=== PATIENT | female | born 1950 | race Caucasian/White ===

== ENCOUNTER 2016-10-10 12:07 | Emergency (ER) | payer MEDICARE, OTHER ==
[2016-10-10] MEDS ORDERED: HYDROcod/ACETAM 5/325 MG TABLET PO STA (14:36)
[2016-10-10] MEDS ORDERED: HYDROcod/ACETAM 5/325 MG TABLET ONE (14:55)
== END 2016-10-10 15:11 | disposition home or self-care (01) ==
DX: M25.561 Pain in right knee (principal); M54.5 Low back pain; R03.0 Elevated blood-pressure reading, without diagnosis of hypertension; Z86.73 Personal history of transient ischemic attack (TIA), and cerebral infarction without residual deficits; E11.9 Type 2 diabetes mellitus without complications; Z79.4 Long term (current) use of insulin; Z79.84 Long term (current) use of oral hypoglycemic drugs
CPT/HCPCS: 72100; 73564; 99283; A9270

== ENCOUNTER 2017-12-26 16:18 | Emergency (ER) | payer MEDICARE, OTHER ==
--- NOTE | 2017-12-26 16:58 | ED Physician Documentation ---
PD HPI Fall - Stated complaint Stated Complaint: GLF/R SHOULDER/ELBOW PX - Chief complaint Chief Complaint: Ext Problem - History obtained from History obtained from: Patient - History of Present Illness Mechanism of injury: Tripped, Slipped Fall distance: Standing position Where injury occurred: Home Timing - onset: Today Injury(ies) location: Right Upper Extremity, Right Lower Extremity Quality of pain: Pain, Aching Associated symptoms: No: LOC, AMS, Amnesia Worsens with: Movement, Palpation Similar symptoms before: Has not had sx before Recently seen: Not recently seen - Additional information Additional information: patient is a 67 year old female who is presenting to the emergency department after falling. patient states that she tripped over a ladder and fell hitting her right upper and lower extremities. patient denies any head trauma or loc. Review of Systems Ten Systems: 10 systems reviewed and negative GI: denies: Nausea, Vomiting Skin: denies: Abrasion (s) Musculoskeletal: reports: Extremity pain, Joint pain, Extremity swelling, Joint swelling Neurologic: denies: Headache, Head injury, LOC PD PAST MEDICAL HISTORY - Past Medical History Past Medical History: Yes Endocrine/Autoimmune: Type 2 diabetes Psych: Depression - Past Surgical History Past Surgical History: Yes General: Appendectomy Ortho: Knee replacement - Present Medications Home Medications: Ambulatory Orders Medication Instructions Recorded Confirmed Insulin Glargine,Hum.rec.anlog 80 unit SQ 09/19/13 06/30/15 [Lantus] Metformin HCl [Glucophage] 1,000 mg PO BID 09/19/13 06/30/15 Venlafaxine HCl [Effexor Xr] 150 mg PO DAILY 12/26/17 - Allergies Allergies/Adverse Reactions: Allergies Allergy/AdvReac Type Severity Reaction Status Date / Time fexofenadine HCl * Allergy Hives Verified 12/26/17 16:42 [From Esther] Penicillins Allergy Hives Verified 12/26/17 16:42 Sulfa (Sulfonamide Allergy Hives Verified 12/26/17 16:42 Antibiotics) - Social History Does the pt smoke?: No Smoking Status: Never smoker Does the pt drink ETOH?: No Does the pt have substance abuse?: No - Immunizations Immunizations are current?: Yes PD ED PE NORMAL - Vitals Vital signs reviewed: Yes - General General: Alert and oriented X 3 - HEENT HEENT: Atraumatic - Neck Neck: No bony TTP - Cardiac Cardiac: RRR - Respiratory Respiratory: No respiratory distress - Neuro Neuro: Alert and oriented X 3, Normal speech Eye Opening: Spontaneous PD ED PE EXPANDED - Extremities Extremities: Right shoulder (mild tenderness to palpation), Right elbow ( tenderness and swelling over right elbow, decreased rom secondary to pain), Right wrist (mild tenderness to palpation of right wrist), Right knee ( tenderness to palpation of right knee) Results - Vitals Vitals: Vital Signs - 24 hr 12/26/17 16:26 Temperature 36.5 C Heart Rate 94 Respiratory 18 Rate Blood Pressure 125/81 H O2 Saturation 94 Oxygen O2 Source Room air - Rads (name of study) right elbow Radiology: Final report received (small radial head fracture) right shoulder Radiology: Final report received (no acute fracture or dislocation) right wrist Radiology: Final report received (no acute fracture or dislocation) right knee Radiology: Final report received (no acute fracture or dislocation) PD MEDICAL DECISION MAKING - ED course Complexity details: reviewed old records, reviewed results, re-evaluated patient , considered differential, d/w patient, d/w family ED course: Patient was seen and examined at bedside. patient was sent for imaging. When patient returned the results were reviewed. Patient was found to have a radial head fracture. Patient was placed in a posterior splint. Patient was given detailed discharge and follow up instructions and was stable for outpatient follow up. - Sepsis Event Vital Signs: Vital Signs - 24 hr 12/26/17 16:26 Temperature 36.5 C Heart Rate 94 Respiratory 18 Rate Blood Pressure 125/81 H O2 Saturation 94 Oxygen O2 Source Room air Departure - Departure Disposition: 01 Home, Self Care Clinical Impression: Radial head fracture, closed Condition: Good Instructions: ED Fx Upper Ext Follow-Up: Adrian Hook MD [Provider Admit Priv/Credential] - Within 3 Days Comments: Your symptoms today are being caused by a radial head fracture. You have been placed in a splint. you should ice your elbow at least 4 times a day. you can take motrin or tylenol as needed for pain. You should call Dr. Hook's office tomorrow to schedule a follow up appointment. you may return to the emergency department at any time for new, worsening or uncontrollable symptoms.
--- NOTE | 2017-12-26 17:43 | XRAY Report ---
Procedure Date: 12/26/2017 Accession Number: [id number] / [id number] Procedure: XR - Elbow 2 View RT CPT Code: FULL RESULT: EXAM: RIGHT ELBOW RADIOGRAPHY EXAM DATE: 12/26/2017 05:29 PM. CLINICAL HISTORY: Fall, pain. COMPARISON: None. TECHNIQUE: 2 views. FINDINGS: Bones: Osteopenia. Mildly impacted fracture of the radial head with discontinuity of the articular surface measuring about 2.6 mm. Otherwise unremarkable. Joints: Distention of anterior and posterior fat pads. Mild marginal lipping. Soft Tissues: Mild soft tissue swelling. IMPRESSION: Impacted radial head fracture. RADIA
--- NOTE | 2017-12-26 17:47 | XRAY Report ---
Procedure Date: 12/26/2017 Accession Number: [id number] / [id number] Procedure: XR - Shoulder 3 View RT CPT Code: FULL RESULT: EXAM: RIGHT SHOULDER RADIOGRAPHY EXAM DATE: 12/26/2017 05:29 PM. CLINICAL HISTORY: Fall on right side. COMPARISON: 12/18/2013. TECHNIQUE: 3 views. FINDINGS: Bones: Osteopenia. Deformity of humeral head and neck due to old fracture. No definite acute fracture or other bone lesion. Joints: Moderate degenerative changes. Soft tissues: Unremarkable. Clear visualized lung. IMPRESSION: No acute disease. RADIA
--- NOTE | 2017-12-26 17:49 | XRAY Report ---
Procedure Date: 12/26/2017 Accession Number: [id number] / [id number] Procedure: XR - Knee 2 View RT CPT Code: FULL RESULT: EXAM: RIGHT KNEE RADIOGRAPHY EXAM DATE: 12/26/2017 05:29 PM. CLINICAL HISTORY: Fall, pain. COMPARISON: 10/10/2016. TECHNIQUE: 2 views. FINDINGS: Bones: Osteopenia. No definite fracture or other bone lesion. Joints: Total knee prosthesis in anatomic alignment. No abnormal lucency associated with the prosthesis. Soft Tissues: Unremarkable. IMPRESSION: No acute disease. RADIA
--- NOTE | 2017-12-26 17:50 | XRAY Report ---
Procedure Date: 12/26/2017 Accession Number: [id number] / [id number] Procedure: XR - Wrist 2 View RT CPT Code: FULL RESULT: EXAM: RIGHT WRIST RADIOGRAPHY EXAM DATE: 12/26/2017 05:29 PM. CLINICAL HISTORY: Fall, pain. COMPARISON: None. TECHNIQUE: 2 views. FINDINGS: Bones: Osteopenia. No definite fracture or other bone lesion. Joints: Marked degenerative changes of the first CMC joint. Soft Tissues: Soft tissue swelling over the distal forearm. IMPRESSION: Soft tissue swelling. RADIA
[2017-12-26] MEDS ORDERED: ACETAMINOPHEN 500 MG TABLET PO STA (17:55)
[2017-12-26 18:37] VITALS: BP 135/84
== END 2017-12-26 18:35 | disposition home or self-care (01) ==
LOC: ED 16:18
DX: S52.121A Displaced fracture of head of right radius, initial encounter for closed fracture (principal); W18.09XA Striking against other object with subsequent fall, initial encounter; Y92.009 Unspecified place in unspecified non-institutional (private) residence as the place of occurrence of the external cause; E11.9 Type 2 diabetes mellitus without complications; Z96.659 Presence of unspecified artificial knee joint
CPT/HCPCS: 73030; 73070; 73100; 73560; 99283; A9270

== ENCOUNTER 2018-07-09 07:44 | Outpatient (CLI) | payer MEDICARE, OTHER ==
[2018-07-09] MEDS ORDERED: GADOBUTROL 10 MMOL/10 ML VIAL ONE (07:56)
[2018-07-09] MEDS ORDERED: GADOBUTROL 10 MMOL/10 ML VIAL IVP ONE (08:47)
--- NOTE | 2018-07-09 09:44 | MRI Report ---
Reason: L ARM PAIN Procedure Date: 07/09/2018 Accession Number: [id number] / [id number] Procedure: MRI - Cervical Spine W/WO CPT Code: FULL RESULT: EXAM: MRI CERVICAL SPINE WITHOUT AND WITH CONTRAST EXAM DATE: 07/09/2018 08:46 AM. CLINICAL HISTORY: Left arm pain. Neck pain extending into the left arm. COMPARISON: None. TECHNIQUE: Multiplanar, multisequence T1-weighted and fluid-sensitive sequences of the cervical spine before and after administration of intravenous contrast. Other: None. IV contrast: 10 cc Gadavist. FINDINGS: Neurologic Structures: The visualized posterior fossa structures are unremarkable. No signal abnormality in the visualized spinal cord. Alignment: Mild dextrorotatory curvature is seen at the cervicothoracic junction. Minimal, 1-1.5 mm, spondylolisthesis is seen at C6-C7, C7-T1 and T1-T2. Bone Marrow: No gross fractures or bone lesions. Bone marrow edema is seen involving right C6 and C7 facet processes. No adjacent fluid collection is seen. Interspace Levels/Facets: C1-C2: Unremarkable on sagittal series. C2-C3: Mild hypertrophy and osseous fusion of the right facet joint is seen. Posterolateral osseous interbody fusion is seen at the disk level. No stenosis. C3-C4: Unremarkable. C4-C5: Unremarkable. C5-C6: Minimal central dorsal disk protrusion. No stenosis. C6-C7: Mild right-sided degenerative facet change is seen. Bone marrow edema is noted in the facet processes and adjacent pedicles. Minimal surrounding paraspinous edema is seen without fluid collection. Minimal spondylolisthesis. Mild broad-based dorsal subligamentous disk protrusion. Effacement of the thecal sac. No stenosis. C7-T1: Minimal left dorsolateral disk bulge. Minimal spondylolisthesis. No stenosis. T1-T2: Minimal spondylolisthesis. No stenosis. T2-T3: Evaluated on sagittal series. Mild dorsal and ventral disk protrusion. No stenosis. Spinal Canal: No enhancing lesions within the spinal canal. No epidural abscess. Musculature: Normal. No edema, enhancement, or fatty atrophy. Other: A 20 mm circumscribed nodule is seen in the right lobe of the thyroid gland. This demonstrates heterogeneous isointense T1 and hyperintense T2 signal. Peripheral enhancement is noted. This could be further evaluated with thyroid ultrasound. Otherwise, the visualized muscle and fascial planes of the neck are unremarkable. IMPRESSION: 1. 20 mm nodule in the right lobe of the thyroid gland. This could be further evaluated with thyroid ultrasound. 2. Mild spondylosis throughout the cervical spine as noted above. Mild dextrorotatory curvature is seen at the cervicothoracic junction. Minimal spondylotic spondylolisthesis is seen as well. 3. C6-C7: Right-sided degenerative facet change. Bone marrow and paraspinous edema is seen. This is likely degenerative in nature. No fluid collection is seen to suggest infectious etiology. RADIA
== END 2018-07-09 07:45 | disposition home or self-care (01) ==
LOC: DI 07:44
PROVIDERS: ATTEND Specialist
DX: M50.222 Other cervical disc displacement at C5-C6 level (principal); M43.12 Spondylolisthesis, cervical region; E04.1 Nontoxic single thyroid nodule; M47.9 Spondylosis, unspecified
CPT/HCPCS: 72156; A9585

== ENCOUNTER 2018-07-18 20:44 | Outpatient (CLI) | payer MEDICARE, OTHER ==
--- NOTE | 2018-07-19 16:09 | Ultrasound Report ---
Reason: 2 CM MASS RIGHT THYROID Procedure Date: 07/18/2018 Accession Number: [id number] / [id number] Procedure: US - Head or Neck Soft Tissue CPT Code: FULL RESULT: EXAM: THYROID ULTRASOUND EXAM DATE: 07/18/2018 10:45 PM. CLINICAL HISTORY: 2 cm mass right thyroid. COMPARISON: None. TECHNIQUE: Real time sonographic imaging of the thyroid was performed by the minor league baseball player. Multiple sales representatives static images were saved for review. FINDINGS: THYROID GLAND: Right Lobe: 3.0 x 1.9 x 1.7 cm, volume 5.0 cc. Normal background echotexture. Right Lobe Nodules: Inferior pole 1.4 x 1.6 x 1.9 cm hypoechoic heterogeneous nodule with calcifications and without vascularity. Additional 0.6 x 0.4 x 0.5 cm tiny hypoechoic upper pole nodule. Left Lobe: 2.7 x 1.3 x 1.8 cm, volume 3.3 cc. Normal background echotexture. Left Lobe Nodules: None. Isthmus: 0.5 cm AP. Isthmic Nodules: None. LYMPH NODES: No adenopathy demonstrated in the central or lateral compartment. OTHER: None. IMPRESSION: Recommend fine-needle aspiration of the dominant nodule in the right lobe of the thyroid. Management recommendations are based on 2015 [place] [employer] Management Guidelines for Adult Patients with Thyroid Nodules and Differentiated Thyroid Cancer. RADIA
== END 2018-07-18 20:45 | disposition home or self-care (01) ==
LOC: DI 20:44
PROVIDERS: ATTEND Specialist
DX: E04.2 Nontoxic multinodular goiter (principal)
CPT/HCPCS: 76536

== ENCOUNTER 2018-08-13 10:47 | Outpatient (CLI) | payer MEDICARE, OTHER | END 2018-08-13 10:48 | disposition home or self-care (01) | LOC: NS 10:47 | PROVIDERS: ATTEND Specialist | DX: Z71.3 Dietary counseling and surveillance (principal); E11.9 Type 2 diabetes mellitus without complications | CPT/HCPCS: 97802 ==

== ENCOUNTER 2018-08-29 22:53 | Emergency (ER) | payer MEDICARE, OTHER ==
--- NOTE | 2018-08-29 23:14 | ED Physician Documentation ---
History of Present Illness - Stated complaint Stated Complaint: ELEV BP,L ARM PAIN - Chief complaint Chief Complaint: Cardiac - History obtained from History obtained from: Patient - History of Present Illness Timing: Today Pain level now: 3 Improved by: nothing Worsened by: no exacerbating factors - Additonal information Additional information: "I wasn't feeling good" this evening, nauseas and "sinus pressure" bilateral forehead. She checked her blood sugar and it was 275; she says she usually has very good control of her blood sugars and this was unusual for her to have such a high reading. Similarly , her blood pressure at home was 164/80, and she does not have hypertension nor take medications for high blood pressure. She also had pain in her left arm that radiated up to left shoulder and across her upper back. Review of Systems Constitutional: reports: Reviewed and negative Eyes: reports: Reviewed and negative Ears: reports: Reviewed and negative Nose: reports: Sinus pressure / pain. denies: Congestion Cardiac: reports: Reviewed and negative Respiratory: reports: Reviewed and negative GI: reports: Reviewed and negative : denies: Dysuria, Frequency Skin: denies: Rash Musculoskeletal: reports: Back pain. denies: Neck pain Neurologic: reports: Headache. denies: Generalized weakness, Focal weakness, Numbness PD PAST MEDICAL HISTORY - Past Medical History Endocrine/Autoimmune: Type 2 diabetes Psych: Depression - Past Surgical History Past Surgical History: Yes General: Appendectomy Ortho: Knee replacement - Present Medications Home Medications: Ambulatory Orders Medication Instructions Recorded Confirmed Insulin Glargine,Hum.rec.anlog 80 unit SQ 09/19/13 06/30/15 [Lantus] Metformin HCl [Glucophage] 1,000 mg PO BID 09/19/13 06/30/15 Venlafaxine HCl [Effexor Xr] 150 mg PO DAILY 12/26/17 - Allergies Allergies/Adverse Reactions: Allergies Allergy/AdvReac Type Severity Reaction Status Date / Time fexofenadine HCl * Allergy Hives Verified 08/29/18 23:00 [From Esther] Penicillins Allergy Hives Verified 08/29/18 23:00 Sulfa (Sulfonamide Allergy Hives Verified 08/29/18 23:00 Antibiotics) - Social History Does the pt smoke?: No Smoking Status: Never smoker Does the pt drink ETOH?: No Does the pt have substance abuse?: No - Immunizations Immunizations are current?: Yes PD ED PE NORMAL - Vitals Vital signs reviewed: Yes - General General: Alert and oriented X 3, No acute distress, Well developed/nourished - HEENT HEENT: Moist mucous membranes, Other (left eye amblyopia (deviates laterally, but corrects when she focuses on objects; she says she has had this since childhood)) - Neck Neck: Supple, no meningeal sign - Cardiac Cardiac: RRR, No murmur, No gallop, No rub - Respiratory Respiratory: No respiratory distress, Clear bilaterally - Abdomen Abdomen: Soft, Non tender - Back Back: No spinal TTP - Derm Derm: Normal color, No rash - Extremities Extremities: Normal ROM s pain, No edema - Neuro Neuro: Alert and oriented X 3, estate planning director 2-12 intact, No motor deficit, No sensory deficit, Normal speech Eye Opening: Spontaneous Motor: Obeys Commands Verbal: Oriented GCS Score: 15 Results - Vitals Vitals: Vital Signs - 24 hr 08/29/18 08/29/18 08/30/18 22:56 23:00 00:52 Temperature 36.9 C Heart Rate 88 78 74 Respiratory 18 20 18 Rate Blood Pressure 155/96 H 149/79 H 138/80 H O2 Saturation 97 96 95 08/30/18 08/30/18 00:53 01:38 Temperature 36.3 C L Heart Rate 76 72 Respiratory 15 17 Rate Blood Pressure 138/80 H 142/82 H O2 Saturation 96 99 Oxygen O2 Source Room air - EKG (time done) No standard instances Rate: Rate (enter#) (78) Rhythm: NSR [place]: LAD Intervals: Normal IL, Wide QRS (NSIVCD) QRS: Normal Ischemia: Normal ST segments, Q waves (III, aVF) - Labs Labs: Laboratory Tests 08/29/18 08/29/18 08/29/18 00:45 23:03 23:35 WBC 7.6 RBC 4.00 L Hgb 12.0 Hct 35.2 L MCV 88.0 MCH 30.0 MCHC 34.1 RDW 13.4 Plt Count 212 MPV 7.5 L Neut # (Auto) 4.4 Lymph # (Auto) 1.8 [place] # (Auto) 0.6 Eos # (Auto) 0.7 Baso # (Auto) 0.1 Absolute Nucleated RBC 0.00 Nucleated RBC % 0.0 D-Dimer Sodium Potassium Chloride Carbon Dioxide Anion Gap BUN Creatinine Estimated GFR (MDRD) Glucose POC Whole Bld Glucose 171 H Calcium Total Bilirubin AST ALT Alkaline Phosphatase Troponin I Total Protein Albumin Globulin Albumin/Globulin Ratio Lipase Urine Color YELLOW Urine Clarity CLEAR Urine pH 6.0 Ur Specific Gibson 1.025 Urine Protein NEGATIVE Urine Glucose (UA) >=1000 H Urine Ketones TRACE Urine Occult Blood NEGATIVE Urine Nitrite NEGATIVE Urine Bilirubin NEGATIVE Urine Urobilinogen 0.2 (NORMAL) Ur Leukocyte Esterase NEGATIVE Ur Microscopic Review NOT INDICATED Urine Culture Comments NOT INDICATED 08/29/18 08/29/18 08/29/18 23:35 23:35 23:35 WBC RBC Hgb Hct MCV MCH MCHC RDW Plt Count MPV Neut # (Auto) Lymph # (Auto) [place] # (Auto) Eos # (Auto) Baso # (Auto) Absolute Nucleated RBC Nucleated RBC % D-Dimer 244.6 Sodium 137 Potassium 3.7 Chloride 104 Carbon Dioxide 25 Anion Gap 8.0 BUN 16 Creatinine 0.6 Estimated GFR (MDRD) 99 Glucose 191 H POC Whole Bld Glucose Calcium 9.2 Total Bilirubin 0.2 AST 22 ALT 20 Alkaline Phosphatase 63 Troponin I < 0.04 Total Protein 7.3 Albumin 3.7 Globulin 3.6 Albumin/Globulin Ratio 1.0 Lipase 35 Urine Color Urine Clarity Urine pH Ur Specific Gibson Urine Protein Urine Glucose (UA) Urine Ketones Urine Occult Blood Urine Nitrite Urine Bilirubin Urine Urobilinogen Ur Leukocyte Esterase Ur Microscopic Review Urine Culture Comments - Rads (name of study) chest xray Radiology: Prelim report reviewed, See rad report PD MEDICAL DECISION MAKING - ED course Complexity details: reviewed results, re-evaluated patient, considered differential, d/w patient Departure - Departure Disposition: 01 Home, Self Care Clinical Impression: Hyperglycemia Back pain Qualifiers: Back pain location: thoracic back pain Chronicity: acute Back pain laterality: bilateral Qualified Code(s): M54.6 - Pain in thoracic spine Condition: Good Instructions: ED Hyperglycemia Diabetic, ED Hypertension Poss, ED Acute Pain [facility] Follow-Up: ASHLEY GILLETTE [Primary Care Provider] - Within 1 week Discharge Date/Time: 08/30/18 01:44
[2018-08-29] MEDS ORDERED: ONDANSETRON ODT 4 MG TABLET TL STA (23:41)
[2018-08-29 23:45] LABS: BASOPHILS # (AUTO) 0.1 10^3/uL (0.0-0.1); BASOPHILS % (AUTO) 0.9 %; EOSINOPHILS # (AUTO) 0.7 10^3/uL (0.0-0.7); EOSINOPHILS % (AUTO) 9.1 %; LYMPHOCYTES # (AUTO) 1.8 10^3/uL (1.5-3.5); MEAN CORPUSCULAR HGB CONC 34.1 g/dL (32.0-36.0); MEAN PLATELET VOLUME 7.5 fL (7.9-10.8); MONOCYTES # (AUTO) 0.6 10^3/uL (0.0-1.0); MONOCYTES % (AUTO) 7.7 %; NEUTROPHILS # (AUTO) 4.4 10^3/uL (1.5-6.6); NEUTROPHILS % (AUTO) 58.3 %; PLT - PLATELET COUNT 212 10^3/uL (130-450); RED CELL DISTRIBUTION WIDTH 13.4 % (12.0-15.0); WHITE BLOOD COUNT 7.6 x10^3/uL (4.8-10.8)
[2018-08-30 00:03] LABS: ALBUMIN 3.7 g/dL (3.2-5.5); BILIRUBIN,TOTAL 0.2 mg/dL (0.2-1.0); CALCIUM 9.2 mg/dL (8.5-10.3); CREATININE 0.6 mg/dL (0.4-1.0); TOTAL PROTEIN 7.3 g/dL (6.7-8.2)
--- NOTE | 2018-08-30 00:20 | XRAY Report ---
Reason: pain across upper back, down LUE Procedure Date: 08/29/2018 Accession Number: [id number] / [id number] Procedure: XR - Chest 2 View X-Ray CPT Code: 58009 FULL RESULT: EXAM: CHEST RADIOGRAPHY EXAM DATE: 08/29/2018 11:54 PM. CLINICAL HISTORY: Pain across upper back, down LUE. COMPARISON: CHEST 2 VIEW PA/LAT 06/30/2015 9:10 PM. TECHNIQUE: 2 views. FINDINGS: Lungs/Pleura: Mild pulmonary vascular congestion. No alveolar consolidation or pleural effusion seen. No pneumothorax. Mediastinum: Borderline cardiomegaly. Other: Osteopenia. Degenerative changes in the shoulders. IMPRESSION: 1. Pulmonary vascular congestion and borderline cardiomegaly. RADIA
[2018-08-30 01:17] LABS: BILIRUBIN,URINE NEGATIVE (NEGATIVE); GLUCOSE, URINE (UA) >=1000 mg/dL (NEGATIVE); KETONES,URINE (UA) TRACE mg/dL (NEGATIVE); LEUKOCYTE ESTERASE, URINE NEGATIVE (NEGATIVE); NITRITE,URINE NEGATIVE (NEGATIVE); OCCULT BLOOD,URINE NEGATIVE (NEGATIVE); PROTEIN,URINE NEGATIVE (NEGATIVE); UROBILINOGEN,URINE 0.2 (NORMAL) E.U./dL (NORMAL)
[2018-08-30 01:19] LABS: CLARITY,URINE CLEAR (CLEAR)
[2018-08-30] MEDS ORDERED: ONDANSETRON ODT 4 MG Prepack 2 TL PRN (01:35)
[2018-08-30 01:38] VITALS: BP 142/82
== END 2018-08-30 01:44 | disposition home or self-care (01) ==
LOC: ED 22:53
DX: E11.65 Type 2 diabetes mellitus with hyperglycemia (principal); M54.6 Pain in thoracic spine; R94.31 Abnormal electrocardiogram [ECG] [EKG]; Z79.84 Long term (current) use of oral hypoglycemic drugs
CPT/HCPCS: 36415; 71046; 80053; 81003; 83690; 84484; 85025; 85379; 93005; 99283; 99284; Q0162; 81001; 87086

== ENCOUNTER 2019-02-01 08:54 | Outpatient (CLI) | payer MEDICARE, OTHER ==
--- NOTE | 2019-02-01 09:29 | CT Report ---
Reason: NASAL FRACTURE Procedure Date: 02/01/2019 Accession Number: [id number] / [id number] Procedure: CT - MAXILLOFACIAL WO CPT Code: FULL RESULT: EXAM: CT MAXILLOFACIAL WITHOUT CONTRAST EXAM DATE: 02/01/2019 09:10 AM. CLINICAL HISTORY: Visual trauma with nasal bone fracture COMPARISONS: CT HEAD W/O CONT 07/19/2012 5:00 PM. TECHNIQUE: Thin-section axial images were acquired of the face without contrast. Post-processing: Coronal and sagittal reformats. Other: None. In accordance with CT protocol optimization, one or more of the following dose reduction techniques were utilized for this exam: automated exposure control, adjustment of mA and/or KV based on patient size, or use of iterative reconstructive technique. FINDINGS: Soft Tissue: The infratemporal fossa and parapharyngeal spaces are unremarkable. Orbits: Symmetric and unremarkable. Bones: Mildly angulated fracture of right nasal bone. Probable nondisplaced left nasal bone fracture. No additional fracture. Temporomandibular Joints: The temporomandibular joints are symmetric and normally located. Sinuses: Mild left maxillary lobulated mucosal thickening. Otherwise well aerated. No fluid levels. Mastoid air cells are well aerated. Mild leftward deviation ostiomeatal units patent. Nasal septum. Other: None. IMPRESSION: Mildly angulated right nasal and nondisplaced left bone fractures. RADIA
== END 2019-02-01 08:55 | disposition home or self-care (01) ==
LOC: DI 08:54
PROVIDERS: ATTEND Specialist
DX: S02.2XXD Fracture of nasal bones, subsequent encounter for fracture with routine healing (principal)
CPT/HCPCS: 70486

== ENCOUNTER 2020-05-02 19:49 | Emergency (ER) | payer MEDICARE, OTHER ==
[2020-05-02] MEDS ORDERED: KETOROLAC 60 MG/2 ML VIAL IM STA (21:47)
--- NOTE | 2020-05-02 21:50 | ED Physician Documentation ---
PD HPI Fall - Stated complaint Stated Complaint: CP - Chief complaint Chief Complaint: Cardiac - History obtained from History obtained from: Patient - History of Present Illness Mechanism of injury: Tripped Fall distance: Standing position Where injury occurred: Home (outside of her home) Timing - onset: Enter time (16:00), Today Injury(ies) location: Chest. No: Head, Neck Pain level now: 4 Quality of pain: Pain Associated symptoms: Dyspnea (hurts to take deep breath in but denies feeling short of breath). No: LOC, AMS, Neck pain, Weakness, Paresthesias, Nausea / vomiting Symptoms improve with: Rest Worsens with: Movement, Palpation Contributing factors: No: Anticoagulated, Intoxicated Similar symptoms before: Has not had sx before Recently seen: Not recently seen - Additional information Additional information: while walking around the outside of her house today at approximately 4 PM, patient tripped and fell forward; she experienced sudden onset chest pain across anterior chest when she hit the ground. The chest pain is worse with movement, palpation, deep inspiration. Denies GARCIA, denies neck pain. It hurts to breathe but does not feel short of breath Review of Systems Cardiac: reports: Chest pain / pressure Respiratory: reports: Dyspnea. denies: Cough GI: denies: Abdominal Pain Musculoskeletal: reports: Back pain (upper back). denies: Neck pain, Extremity pain, Joint pain Neurologic: denies: Generalized weakness, Focal weakness, Numbness, Near syncope, Syncope, Confused, Altered mental status, Headache, Head injury, LOC PD PAST MEDICAL HISTORY - Past Medical History Past Medical History: Yes Endocrine/Autoimmune: Type 2 diabetes Psych: Depression - Past Surgical History Past Surgical History: Yes General: Appendectomy Ortho: Knee replacement - Present Medications Home Medications: Ambulatory Orders Medication Instructions Recorded Confirmed Insulin Glargine,Hum.rec.anlog 80 unit SQ 09/19/13 06/30/15 [Lantus] Metformin HCl [Glucophage] 1,000 mg PO BID 09/19/13 06/30/15 Venlafaxine HCl [Effexor Xr] 150 mg PO DAILY 12/26/17 traMADol [Ultram] 50 - 100 mg PO Q6H PRN #14 tablet 05/02/20 - Allergies Allergies/Adverse Reactions: Allergies Allergy/AdvReac Type Severity Reaction Status Date / Time fexofenadine HCl * Allergy Hives Verified 11/14/20 20:00 [From Esther] Penicillins Allergy Hives Verified 05/02/20 20:00 Sulfa (Sulfonamide Allergy Hives Verified 05/02/20 20:00 Antibiotics) - Social History Does the pt smoke?: No Smoking Status: Never smoker Does the pt drink ETOH?: No Does the pt have substance abuse?: No - Immunizations Immunizations are current?: Yes PD ED PE NORMAL - Vitals Vital signs reviewed: Yes - General General: Alert and oriented X 3, No acute distress, Well developed/nourished - HEENT HEENT: Atraumatic, PERRL, Moist mucous membranes - Neck Neck: Supple, no meningeal sign, No bony TTP - Cardiac Cardiac: RRR, No murmur - Respiratory Respiratory: No respiratory distress, Clear bilaterally - Abdomen Abdomen: Soft, Non tender - Back Back: No spinal TTP - Extremities Extremities: No deformity, No tenderness to palpate - Neuro Neuro: Alert and oriented X 3 Results - Vitals Vitals: Vital Signs - 24 hr 05/02/20 05/02/20 05/02/20 19:54 21:00 22:00 Temperature 36.6 C Heart Rate 74 72 74 Respiratory 18 12 18 Rate Blood Pressure 159/79 H 146/79 H 144/100 H O2 Saturation 97 98 97 05/02/20 05/02/20 05/02/20 22:30 23:00 23:40 Temperature 36.6 C Heart Rate 72 70 71 Respiratory 14 14 15 Rate Blood Pressure 136/70 H 133/70 H 124/72 O2 Saturation 97 95 98 Oxygen O2 Source Room air - EKG (time done) No standard instances Rate: Rate (enter#) (73) Rhythm: NSR [place]: LAD, Anterior hemiblock Intervals: Normal WI, Wide QRS (NSIVCD) QRS: Normal Ischemia: Normal ST segments, Q waves (III, aVF) Compare to prior EKG: Unchanged from prior EKG - Rads (name of study) chest xray Radiology: Prelim report reviewed, See rad report PD MEDICAL DECISION MAKING - ED course Complexity details: reviewed results, re-evaluated patient, considered differential, d/w patient ED course: reevaluated and test results d/w patient. She reports improvement after toradol. will d/c and return if worse, rx for ultram provided. I instructed her to try ibuprofen but to take the vicodin if ibuprofen does not provide adequate relief Departure - Departure Disposition: 01 Home, Self Care Clinical Impression: Chest wall contusion Qualifiers: Encounter type: initial encounter Laterality: unspecified laterality Qualified Code(s): S20.219A - Contusion of unspecified front wall of thorax, initial encounter Condition: Good Instructions: ED Contusion Chest Wall Follow-Up: Donald Boggs DO [Primary Care Provider] - Prescriptions: traMADol [Ultram] 50 - 100 mg PO Q6H PRN #14 tablet PRN Reason: Pain Discharge Date/Time: 05/02/20 23:41
[2020-05-02 23:41] VITALS: BP 124/72
--- NOTE | 2020-05-03 07:14 | XRAY Report ---
PROCEDURE: Chest 2 View X-Ray INDICATIONS: chest pain TECHNIQUE: 2 view(s) of the chest. COMPARISON: 08/29/2018 FINDINGS: Surgical changes and devices: None. Lungs and pleura: No pleural effusions or pneumothorax. Low lung volumes accentuate the bronchovascu lar markings.. Mediastinum: Mediastinal contours are normal. Heart size is normal. Bones and chest wall: No suspicious bony abnormalities. Degenerative endplate spurring in the midth oracic spine. Soft tissues appear unremarkable. IMPRESSION: 1. No evidence of acute chest trauma. 2. Concordant with preliminary report. Reviewed by: Teresa Blank MD on 05/03/2020 7:12 AM PST Approved by: Teresa Blank MD on 05/03/2020 7:12 AM PST Station ID: [id number]
== END 2020-05-02 23:41 | disposition home or self-care (01) ==
LOC: ED 19:49
DX: S20.219A Contusion of unspecified front wall of thorax, initial encounter (principal); M54.6 Pain in thoracic spine; W01.0XXA Fall on same level from slipping, tripping and stumbling without subsequent striking against object, initial encounter; Y93.01 Activity, walking, marching and hiking; Y92.007 Garden or yard of unspecified non-institutional (private) residence as the place of occurrence of the external cause; E11.9 Type 2 diabetes mellitus without complications; Z79.4 Long term (current) use of insulin
CPT/HCPCS: 71046; 93005; 96372; 99283; 99284

== ENCOUNTER 2020-05-12 09:52 | Emergency (ER) | payer MEDICARE, OTHER ==
[2020-05-12 10:07] VITALS: BP 121/84
== END 2020-05-12 11:07 | disposition left against medical advice (07) ==
LOC: ED 09:52
DX: Z53.21 Procedure and treatment not carried out due to patient leaving prior to being seen by health care provider (principal)

== ENCOUNTER 2020-05-12 11:55 | Outpatient (CLI) | payer MEDICARE, OTHER | END 2020-05-12 23:59 | disposition home or self-care (01) | LOC: LAB.R 11:55 | PROVIDERS: ATTEND Physician Assistant Medical | DX: B34.9 Viral infection, unspecified (principal); Z20.828 Contact with and (suspected) exposure to other viral communicable diseases ==

== ENCOUNTER 2020-05-12 12:46 | Emergency (ER) | payer MEDICARE, OTHER ==
--- NOTE | 2020-05-12 13:55 | XRAY Report ---
PROCEDURE: Chest 1 View X-Ray INDICATIONS: sepsis flag; GLF x7 days ago, rib pain TECHNIQUE: One view of the chest was acquired. COMPARISON: 05/02/2020 and 08/29/2018 FINDINGS: Surgical changes and devices: None. Lungs and pleura: No pleural effusions or pneumothorax. Lungs are clear. Mediastinum: Mediastinal contours appear normal. Heart size is normal. Bones and chest wall: No suspicious bony lesions. Overlying soft tissues appear unremarkable. IMPRESSION: No acute cardiopulmonary disease process. Reviewed by: Annabelle Lai MD, PhD on 05/12/2020 1:54 PM PST Approved by: Annabelle Lai MD, PhD on 05/12/2020 1:54 PM PST Station ID: [id number]
[2020-05-12 13:58] LABS: BASOPHILS % (AUTO) 0.3 %; HGB - HEMOGLOBIN 12.5 g/dL (12.0-16.0); LYMPHOCYTES # (AUTO) 0.7 10^3/uL (1.5-3.5); LYMPHOCYTES % (AUTO) 9.9 %; MEAN CORPUSCULAR HGB CONC 33.4 g/dL (32.0-36.0); MEAN CORPUSCULAR VOLUME 89.9 fL (81.0-99.0); MEAN PLATELET VOLUME 8.9 fL (7.9-10.8); MONOCYTES # (AUTO) 0.8 10^3/uL (0.0-1.0); MONOCYTES % (AUTO) 11.3 %; NEUTROPHILS # (AUTO) 5.5 10^3/uL (1.5-6.6); NEUTROPHILS % (AUTO) 78.2 %; PLT - PLATELET COUNT 177 10^3/uL (130-450); RED BLOOD COUNT 4.16 10^6/uL (4.20-5.40); WHITE BLOOD COUNT 7.1 x10^3/uL (4.8-10.8)
[2020-05-12 14:07] LABS: INR 1.3 (0.8-1.2); PT - PROTHROMBIN TIME 13.9 secs (9.9-12.6)
[2020-05-12 14:12] LABS: ALBUMIN 3.7 g/dL (3.2-5.5); ALBUMIN/GLOBULIN RATIO 0.9 (1.0-2.2); BILIRUBIN,TOTAL 0.5 mg/dL (0.2-1.0); CALCIUM 9.2 mg/dL (8.5-10.3); CREATININE 0.7 mg/dL (0.4-1.0); TOTAL PROTEIN 7.8 g/dL (6.7-8.2)
[2020-05-12 14:14] LABS: PARTIAL THROMBOPLASTIN TIME 28.4 secs (24.9-33.3)
[2020-05-12] MEDS ORDERED: ACETAMINOPHEN 325 MG TABLET PO STA ×2 (14:23→20:07)
[2020-05-12] MEDS ORDERED: LACTATED RINGERS 2,200 ML IV ONE (14:24)
[2020-05-12 16:35] LABS: C. PNEUMONIAE- RESP PCR PANEL NOT DETECTED
[2020-05-12] MEDS ORDERED: KETOROLAC 30 MG/ML VIAL IVP STA (19:22)
--- NOTE | 2020-05-12 19:26 | ED Physician Documentation ---
History of Present Illness - Stated complaint Stated Complaint: FEVER,CHILLS,BODY ACHES - Chief complaint Chief Complaint: Fever - History obtained from History obtained from: Patient - Additonal information Additional information: 69-year-old woman with past medical history of diabetes, high blood pressure, hyperlipidemia, CVA presents with nausea vomiting nonbloody nonbilious today, chills for the past couple days, myalgias, with temperature orally at home of 101. Patient also endorsing some body aches after falling 7 days ago from a trip and fall. Denies Covid exposure, sore throat URI symptoms chest pain palpitations shortness of breath back pain diarrhea abdominal pain urinary symptoms. Review of Systems Ten Systems: 10 systems reviewed and negative Constitutional: reports: Fever, Chills, Myalgias Cardiac: denies: Chest pain / pressure, Palpitations Respiratory: denies: Dyspnea, Cough GI: reports: Nausea, Vomiting PD PAST MEDICAL HISTORY - Past Medical History Endocrine/Autoimmune: Type 2 diabetes Psych: Depression - Past Surgical History Past Surgical History: Yes General: Appendectomy Ortho: Knee replacement - Present Medications Home Medications: Ambulatory Orders Medication Instructions Recorded Confirmed Insulin Glargine,Hum.rec.anlog 80 unit SQ 09/19/13 06/30/15 [Lantus] Metformin HCl [Glucophage] 1,000 mg PO BID 09/19/13 06/30/15 Venlafaxine HCl [Effexor Xr] 150 mg PO DAILY 12/26/17 traMADol [Ultram] 50 - 100 mg PO Q6H PRN #14 tablet 05/02/20 - Allergies Allergies/Adverse Reactions: Allergies Allergy/AdvReac Type Severity Reaction Status Date / Time fexofenadine HCl * Allergy Hives Verified 05/12/20 10:06 [From Esther] Penicillins Allergy Hives Verified 05/12/20 10:06 Sulfa (Sulfonamide Allergy Hives Verified 05/12/20 10:06 Antibiotics) - Social History Does the pt smoke?: No Smoking Status: Never smoker Does the pt drink ETOH?: No Does the pt have substance abuse?: No - Immunizations Immunizations are current?: Yes PD ED PE NORMAL - Vitals Vital signs reviewed: Yes - General General: Alert and oriented X 3 - HEENT HEENT: Atraumatic, PERRL, EOMI, Moist mucous membranes, Pharynx benign - Neck Neck: Supple, no meningeal sign, No JVD - Cardiac Cardiac: RRR (borderline tachycardic rate) - Respiratory Respiratory: No respiratory distress, Clear bilaterally - Abdomen Abdomen: Normal bowel sounds - Female Female : Deferred - Rectal Rectal: Deferred - Back Back: No CVA TTP - Derm Derm: Normal color, Warm and dry - Extremities Extremities: No deformity - Neuro Neuro: Alert and oriented X 3, medical sales specialist 2-12 intact - Psych Psych: Normal mood, Normal affect Results - Vitals Vitals: Vital Signs - 24 hr 05/12/20 05/12/20 05/12/20 12:48 14:37 15:07 Temperature 37.3 C 39.1 C H Heart Rate 115 H 93 Respiratory 24 15 Rate Blood Pressure 142/82 H 134/74 H O2 Saturation 98 97 05/12/20 05/12/20 18:19 18:28 Temperature 37.3 C 38.2 C H Heart Rate 97 Respiratory 15 Rate Blood Pressure 116/98 H O2 Saturation 99 Oxygen O2 Source Room air - EKG (time done) 1933 Rate: Rate (enter#) (104) Rhythm: Sinus tachycardia Compare to prior EKG: Unchanged from prior EKG (05/02/20) Computer interpretation: Disagree with computer (NSR, not afib) - Labs Labs: Laboratory Tests 05/12/20 05/12/20 05/12/20 13:50 13:50 13:50 WBC 7.1 RBC 4.16 L Hgb 12.5 Hct 37.4 MCV 89.9 MCH 30.0 MCHC 33.4 RDW 13.0 Plt Count 177 MPV 8.9 Neut # (Auto) 5.5 Lymph # (Auto) 0.7 L [place] # (Auto) 0.8 Eos # (Auto) 0.0 Baso # (Auto) 0.0 Absolute Nucleated RBC 0.00 Nucleated RBC % 0.0 PT 13.9 H INR 1.3 H APTT 28.4 Sodium 136 Potassium 3.7 Chloride 99 L Carbon Dioxide 25 Anion Gap 12.0 BUN 14 Creatinine 0.7 Estimated GFR (MDRD) 82 L Glucose 136 H Lactic Acid Calcium 9.2 Total Bilirubin 0.5 AST 17 ALT 20 Alkaline Phosphatase 46 Total Protein 7.8 Albumin 3.7 Globulin 4.1 Albumin/Globulin Ratio 0.9 L Lipase 25 Nasal Adenovirus (PCR) Nasal B. parapertussis DNA (PCR) Nasal Coronavir 229E PCR Nasal Coronavir HKU1 PCR Nasal Coronavir NL63 PCR Nasal Coronavir OC43 PCR Nasal Enterovir/Rhinovir PCR Nasal Influenza B PCR Nasal Influenza A PCR Nasal Parainfluen 1 PCR Nasal Parainfluen 2 PCR Nasal Parainfluen 3 PCR Nasal Parainfluen 4 PCR Nasal RSV (PCR) Nasal B.pertussis DNA PCR Nasal C.pneumoniae (PCR) Gabriel Human Metapneumo PCR Nasal M.pneumoniae (PCR) Nasal SARS-CoV-2 (PCR) 05/12/20 05/12/20 13:50 14:35 WBC RBC Hgb Hct MCV MCH MCHC RDW Plt Count MPV Neut # (Auto) Lymph # (Auto) [place] # (Auto) Eos # (Auto) Baso # (Auto) Absolute Nucleated RBC Nucleated RBC % PT INR APTT Sodium Potassium Chloride Carbon Dioxide Anion Gap BUN Creatinine Estimated GFR (MDRD) Glucose Lactic Acid 1.0 Calcium Total Bilirubin AST ALT Alkaline Phosphatase Total Protein Albumin Globulin Albumin/Globulin Ratio Lipase Nasal Adenovirus (PCR) NOT DETECTED Nasal B. parapertussis DNA (PCR) NOT DETECTED Nasal Coronavir 229E PCR NOT DETECTED Nasal Coronavir HKU1 PCR NOT DETECTED Nasal Coronavir NL63 PCR NOT DETECTED Nasal Coronavir OC43 PCR NOT DETECTED Nasal Enterovir/Rhinovir PCR NOT DETECTED Nasal Influenza B PCR NOT DETECTED Nasal Influenza A PCR NOT DETECTED Nasal Parainfluen 1 PCR NOT DETECTED Nasal Parainfluen 2 PCR NOT DETECTED Nasal Parainfluen 3 PCR NOT DETECTED Nasal Parainfluen 4 PCR NOT DETECTED Nasal RSV (PCR) NOT DETECTED Nasal B.pertussis DNA PCR NOT DETECTED Nasal C.pneumoniae (PCR) NOT DETECTED Gabriel Human Metapneumo PCR NOT DETECTED Nasal M.pneumoniae (PCR) NOT DETECTED Nasal SARS-CoV-2 (PCR) NOT DETECTED PD MEDICAL DECISION MAKING - ED course Complexity details: reviewed results, re-evaluated patient, d/w patient ED course: 69-year-old woman with myalgias, fever, nausea and vomiting, found to have normal lactate and clear chest x-ray. No other source of infection. No abdominal pain and abdominal exam was nontender. Symptoms appear to be flulike versus Covid or another virus. Patient tolerating p.o. here in the ED, feels comfortable going home and following up with her pcp Dr. Boggs. Departure - Departure Disposition: Home, Self Care Clinical Impression: Nausea and vomiting, Myalgia, Fever Condition: Good Instructions: Diet Clear Liquid Dc Follow-Up: Donald Boggs DO [Provider Admit Priv/Credential] - Comments: You have been seen in the emergency department for an acute viral illness. Please follow-up with your primary doctor for telehealth appointment. It is important that you hydrate well and get lots of rest. Take Tylenol 650 mg every 6 hours if you are experiencing pain. You can alternate that with ibuprofen 600 mg every 6 hours. Return to the ED for any new or worsening symptoms.
[2020-05-12 20:31] LABS: BILIRUBIN,URINE NEGATIVE (NEGATIVE); GLUCOSE, URINE (UA) NEGATIVE (NEGATIVE); KETONES,URINE (UA) TRACE mg/dL (NEGATIVE); LEUKOCYTE ESTERASE, URINE SMALL (NEGATIVE); NITRITE,URINE POSITIVE (NEGATIVE); OCCULT BLOOD,URINE TRACE-INTA (NEGATIVE); PROTEIN,URINE NEGATIVE (NEGATIVE); UROBILINOGEN,URINE 0.2 (NORMAL) E.U./dL (NORMAL)
[2020-05-12 20:32] LABS: CLARITY,URINE HAZY (CLEAR)
[2020-05-12 20:37] LABS: BACTERIA,URINE Moderate /HPF (None Seen); RBC,URINE 0-5 /HPF (0-5); SQUAMOUS EPITHELIAL CELL,UR FEW Squamous (<= Few)
[2020-05-12 20:42] VITALS: BP 122/68
== END 2020-05-12 21:05 | disposition home or self-care (01) ==
LOC: ED 12:46
DX: R11.2 Nausea with vomiting, unspecified (principal); R50.9 Fever, unspecified; M79.10 Myalgia, unspecified site; Z20.828 Contact with and (suspected) exposure to other viral communicable diseases; R00.0 Tachycardia, unspecified; E11.9 Type 2 diabetes mellitus without complications; Z79.4 Long term (current) use of insulin; E78.5 Hyperlipidemia, unspecified; Z86.73 Personal history of transient ischemic attack (TIA), and cerebral infarction without residual deficits; B34.9 Viral infection, unspecified
CPT/HCPCS: 36415; 71045; 80053; 81001; 83605; 83690; 85025; 85610; 85730; 87040; 87077; 87086; 87181; 87631; 93005; 96374; 99284; A9270; J7120; 0202U; 81003

== ENCOUNTER 2020-05-18 14:27 | Emergency (ER) | payer MEDICARE, OTHER ==
[2020-05-18] MEDS ORDERED: SODIUM CHLORIDE 0.9% 1,000 ML IV STA ×2 (14:58)
--- NOTE | 2020-05-18 15:00 | ED Physician Documentation ---
History of Present Illness - Stated complaint Stated Complaint: BLOOD RESULTS - Chief complaint Chief Complaint: General - History obtained from History obtained from: Patient - History of Present Illness Timing: Today Pain level max: 0 Pain level now: 0 - Additonal information Additional information: 69-year-old female presents to the emergency department after having a positive gram-negative bacilli on blood culture. This was drawn about a week ago. She was treated for UTI with ciprofloxacin at that time. 250 mg, twice daily. She finished her antibiotics today. She states she is no longer having fevers or vomiting. She does feel very tired and weak. No cough. No congestion. Nothing makes it better or worse. Review of Systems Constitutional: denies: Fever, Chills Throat: denies: Sore throat Cardiac: denies: Chest pain / pressure Respiratory: denies: Cough, Wheezing GI: denies: Vomiting, Diarrhea : denies: Dysuria, Frequency, Hesitancy Skin: denies: Rash Musculoskeletal: denies: Neck pain, Back pain Neurologic: denies: Headache PD PAST MEDICAL HISTORY - Past Medical History Endocrine/Autoimmune: Type 2 diabetes Psych: Depression - Past Surgical History Past Surgical History: Yes General: Appendectomy Ortho: Knee replacement - Present Medications Home Medications: Ambulatory Orders Medication Instructions Recorded Confirmed Insulin Glargine,Hum.rec.anlog 80 unit SQ 09/19/13 06/30/15 [Lantus] Metformin HCl [Glucophage] 1,000 mg PO BID 09/19/13 06/30/15 Venlafaxine HCl [Effexor Xr] 150 mg PO DAILY 12/26/17 traMADol [Ultram] 50 - 100 mg PO Q6H PRN #14 tablet 05/02/20 Ciprofloxacin [Cipro] 250 mg PO Q12H 5 Days #10 tablet 05/12/20 Levofloxacin 750 mg PO DAILY #10 tablet 05/18/20 - Allergies Allergies/Adverse Reactions: Allergies Allergy/AdvReac Type Severity Reaction Status Date / Time fexofenadine HCl * Allergy Hives Verified 05/18/20 14:38 [From Esther] Penicillins Allergy Hives Verified 05/18/20 14:38 Sulfa (Sulfonamide Allergy Hives Verified 05/18/20 14:38 Antibiotics) - Social History Does the pt smoke?: No Smoking Status: Never smoker Does the pt drink ETOH?: No Does the pt have substance abuse?: No - Immunizations Immunizations are current?: Yes PD ED PE NORMAL - Vitals Vital signs reviewed: Yes - General General: Alert and oriented X 3, No acute distress, Well developed/nourished - HEENT HEENT: PERRL, Moist mucous membranes - Neck Neck: Supple, no meningeal sign - Cardiac Cardiac: RRR, Strong equal pulses - Respiratory Respiratory: No respiratory distress, Clear bilaterally - Abdomen Abdomen: Soft, Non tender, Non distended - Back Back: No CVA TTP - Derm Derm: Warm and dry - Extremities Extremities: No edema - Neuro Neuro: Alert and oriented X 3 - Psych Psych: Normal mood, Normal affect Results - Vitals Vitals: Vital Signs - 24 hr 05/18/20 05/18/20 05/18/20 14:33 15:22 15:30 Temperature 36.3 C L Heart Rate 69 66 68 Respiratory 14 18 18 Rate Blood Pressure 141/69 H 135/64 H 114/73 O2 Saturation 100 99 95 05/18/20 16:00 Temperature Heart Rate 73 Respiratory 18 Rate Blood Pressure 132/67 H O2 Saturation 99 Oxygen O2 Source Room air - Labs Labs: Laboratory Tests 05/18/20 05/18/20 05/18/20 15:05 15:05 15:05 WBC 6.2 RBC 4.01 L Hgb 11.9 L Hct 36.2 L MCV 90.3 MCH 29.7 MCHC 32.9 RDW 13.1 Plt Count 278 MPV 9.0 Neut # (Auto) 4.0 Lymph # (Auto) 1.4 L [place] # (Auto) 0.5 Eos # (Auto) 0.2 Baso # (Auto) 0.0 Absolute Nucleated RBC 0.00 Nucleated RBC % 0.0 Sodium 142 Potassium 3.6 Chloride 105 Carbon Dioxide 25 Anion Gap 12.0 BUN 17 Creatinine 0.7 Estimated GFR (MDRD) 82 L Glucose 62 L Lactic Acid 1.5 Calcium 9.8 Total Bilirubin 0.4 AST 30 ALT 31 Alkaline Phosphatase 49 Total Protein 7.7 Albumin 3.7 Globulin 4.0 Albumin/Globulin Ratio 0.9 L Lipase 48 Urine Color Urine Clarity Urine pH Ur Specific [place] Urine Protein Urine Glucose (UA) Urine Ketones Urine Occult Blood Urine Nitrite Urine Bilirubin Urine Urobilinogen Ur Leukocyte Esterase Urine RBC Urine WBC Ur Squamous Epith Cells Urine Bacteria Ur Microscopic Review Urine Culture Comments 05/18/20 16:30 WBC RBC Hgb Hct MCV MCH MCHC RDW Plt Count MPV Neut # (Auto) Lymph # (Auto) [place] # (Auto) Eos # (Auto) Baso # (Auto) Absolute Nucleated RBC Nucleated RBC % Sodium Potassium Chloride Carbon Dioxide Anion Gap BUN Creatinine Estimated GFR (MDRD) Glucose Lactic Acid Calcium Total Bilirubin AST ALT Alkaline Phosphatase Total Protein Albumin Globulin Albumin/Globulin Ratio Lipase Urine Color LT. YELLOW Urine Clarity HAZY Urine pH 5.5 Ur Specific [place] 1.010 Urine Protein NEGATIVE Urine Glucose (UA) NEGATIVE Urine Ketones NEGATIVE Urine Occult Blood NEGATIVE Urine Nitrite NEGATIVE Urine Bilirubin NEGATIVE Urine Urobilinogen 0.2 (NORMAL) Ur Leukocyte Esterase SMALL H Urine RBC 0-5 Urine WBC 6-10 H Ur Squamous Epith Cells FEW Squamous Urine Bacteria Moderate H Ur Microscopic Review INDICATED Urine Culture Comments INDICATED PD MEDICAL DECISION MAKING - ED course Complexity details: reviewed results, re-evaluated patient, considered differential, d/w patient, d/w peoplesoft consultant ED course: Patient recently treated for UTI. She had one blood culture that grew out gram- negative rods about 5 days after her initial visit. Patient is not having any further fevers, chills, vomiting. She does feel tired still. Normal white count here. Normal lactate. Repeat cultures performed. Discussed the case with infectious disease, Dr. Rodriguez, she recommends 2 g of IV Rocephin now. Recommends Levaquin 750 mg daily for 10 days. Patient feels comfortable going home at this time. Patient counseled regarding signs and symptoms for which I believe and urgent re-evaluation would be necessary. Patient with good understanding of and agreement to plan and is comfortable going home at this time This document was made in part using voice recognition software. While efforts are made to proofread this document, sound alike and grammatical errors may occur. Departure - Departure Disposition: 01 Home, Self Care Clinical Impression: Bacteremia UTI (urinary tract infection) Qualifiers: Urinary tract infection type: acute cystitis Hematuria presence: without hematuria Qualified Code(s): N30.00 - Acute cystitis without hematuria Condition: Good Instructions: ED UTI Cystitis Female Follow-Up: Donald Boggs DO [Primary Care Provider] - Within 1 week Prescriptions: Levofloxacin 750 mg PO DAILY #10 tablet Comments: Return if you worsen. Follow up with your doctor in 1 week for repeat evaluation. Take all antibiotics until gone. Discharge Date/Time: 05/18/20 18:06
[2020-05-18 15:14] LABS: BASOPHILS % (AUTO) 0.6 %; EOSINOPHILS # (AUTO) 0.2 10^3/uL (0.0-0.7); EOSINOPHILS % (AUTO) 2.9 %; HGB - HEMOGLOBIN 11.9 g/dL (12.0-16.0); LYMPHOCYTES # (AUTO) 1.4 10^3/uL (1.5-3.5); LYMPHOCYTES % (AUTO) 23.1 %; MEAN CORPUSCULAR HEMOGLOBIN 29.7 pg (27.0-31.0); MEAN CORPUSCULAR HGB CONC 32.9 g/dL (32.0-36.0); MEAN CORPUSCULAR VOLUME 90.3 fL (81.0-99.0); MONOCYTES # (AUTO) 0.5 10^3/uL (0.0-1.0); MONOCYTES % (AUTO) 8.4 %; NEUTROPHILS % (AUTO) 64.7 %; PLT - PLATELET COUNT 278 10^3/uL (130-450); RED BLOOD COUNT 4.01 10^6/uL (4.20-5.40); RED CELL DISTRIBUTION WIDTH 13.1 % (12.0-15.0); WHITE BLOOD COUNT 6.2 x10^3/uL (4.8-10.8)
[2020-05-18 15:27] LABS: ALBUMIN 3.7 g/dL (3.2-5.5); ALBUMIN/GLOBULIN RATIO 0.9 (1.0-2.2); BILIRUBIN,TOTAL 0.4 mg/dL (0.2-1.0); CALCIUM 9.8 mg/dL (8.5-10.3); CREATININE 0.7 mg/dL (0.4-1.0); TOTAL PROTEIN 7.7 g/dL (6.7-8.2)
[2020-05-18] MEDS ORDERED: ACETAMINOPHEN 325 MG TABLET PO STA (15:30)
[2020-05-18 16:32] VITALS: BP 132/67
[2020-05-18 16:54] LABS: BILIRUBIN,URINE NEGATIVE (NEGATIVE); GLUCOSE, URINE (UA) NEGATIVE (NEGATIVE); KETONES,URINE (UA) NEGATIVE (NEGATIVE); LEUKOCYTE ESTERASE, URINE SMALL (NEGATIVE); NITRITE,URINE NEGATIVE (NEGATIVE); OCCULT BLOOD,URINE NEGATIVE (NEGATIVE); PH,URINE 5.5 PH (5.0-7.5); PROTEIN,URINE NEGATIVE (NEGATIVE); UROBILINOGEN,URINE 0.2 (NORMAL) E.U./dL (NORMAL)
[2020-05-18] MEDS ORDERED: cefTRIAXone 2 GM in SODIUM CHLORIDE 0.9% MINIBAG 100 ML IV STA (17:00)
[2020-05-18 17:01] LABS: CLARITY,URINE HAZY (CLEAR)
[2020-05-18 17:11] LABS: RBC,URINE 0-5 /HPF (0-5); SQUAMOUS EPITHELIAL CELL,UR FEW Squamous (<= Few)
[2020-05-18 17:12] LABS: BACTERIA,URINE Moderate /HPF (None Seen)
== END 2020-05-18 18:06 | disposition home or self-care (01) ==
LOC: ED 14:27
DX: R78.81 Bacteremia (principal); N30.00 Acute cystitis without hematuria; E11.9 Type 2 diabetes mellitus without complications; Z79.4 Long term (current) use of insulin
CPT/HCPCS: 36415; 80053; 81001; 83605; 83690; 85025; 87040; 87086; 93005; 96365; 99283; 99284; A9270; 81003

== ENCOUNTER 2020-06-16 12:51 | Outpatient (CLI) | payer MEDICARE, OTHER ==
--- NOTE | 2020-06-18 02:53 | DEXA Report ---
PROCEDURE: Dexa Spine and/or Hip INDICATIONS: POST MENOPAUSAL, SCREENING FOR OSTEOPOROSIS TECHNIQUE: Dual energy x-ray absorptiometry (DXA) was performed on a [employer] System. Regions measur ed are the AP Spine, femoral neck, and if needed forearm. COMPARISON: None. FINDINGS: Lumbar Spine: Bone Mineral Density 1.046 g/cm/cm,T score -1.2 Left Hip: Bone Mineral Density 0.955 g/cm/cm,T score -0.4 Left Femoral Neck: Bone Mineral Density 0.941 g/cm/cm, T score -0.7 (T score greater or equal to -1.0: NORMAL) (T score from -1.1 to -2.4: OSTEOPENIA) (T score less than or equal to -2.5 to: OSTEOPOROSIS) Impression: Based on WHO criteria, the patient is osteopenic. Patients with diagnosis of osteoporosis or osteopenia should have regular bone mineral density assess ment. For those eligible for Medicare, routine testing is allowed once every 2 years. Testing frequ ency can be increased for patients who have rapidly progressing disease or for those who are receivin g medical therapy to restore bone mass. Reviewed by: Eliseo Lopez MD on 06/16/2020 6:07 PM PST Approved by: Eliseo Lopez MD on 06/16/2020 6:07 PM PST Station ID: [id number]
== END 2020-06-16 12:52 | disposition home or self-care (01) ==
LOC: DI 12:51
PROVIDERS: ATTEND Family Medicine
DX: M85.88 Other specified disorders of bone density and structure, other site (principal)

== ENCOUNTER 2020-06-16 12:56 | Outpatient (CLI) | payer MEDICARE, OTHER ==
--- NOTE | 2020-06-17 09:18 | Mammography Report ---
BILATERAL DIGITAL SCREENING MAMMOGRAM 3D/2D: 06/16/2020 CLINICAL: Routine screening. Comparison is made to exam dated: 08/14/2013 mammogram - [facility]. The tissue of toribio th breasts is heterogeneously dense. This may lower the sensitivity of mammography. No significant masses, calcifications, or other findings are seen in either breast. There has been no significant interval change. IMPRESSION: NEGATIVE There is no mammographic evidence of malignancy. A 1 year screening mammogram is recommended. This exam was interpreted at Station ID: [id number]. NOTE: For mammograms, a report in lay terms will be sent to the patient. Approximately 15% of breast malignancies will not be visualized mammographically. In the management of a palpable breast mass, a negative mammogram must not discourage biopsy of a clinically suspicious lesion. Electronically Signed By: Stephen Jovel M.D. ddp/penrad:06/16/2020 16:11:45 ACR BI-RADS Category 1: Negative 3341F PARENCHYMAL PATTERN: (D) - The breast(s) demonstrate(s) heterogeneously dense fibroglandular sindy ritter. BI-RADS CATEGORY: (1) - 1 RECOMMENDATION: (ANNUAL) - Recommend routine annual screening mammography. [id number] 1 year screening LATERALITY: (B)
== END 2020-06-16 12:57 | disposition home or self-care (01) ==
LOC: DI 12:56
PROVIDERS: ATTEND Family Medicine
DX: Z12.31 Encounter for screening mammogram for malignant neoplasm of breast (principal)
CPT/HCPCS: 77067

== ENCOUNTER 2020-08-27 10:41 | Emergency (ER) | payer MEDICARE, OTHER ==
[2020-08-27] MEDS ORDERED: BUFFERED LIDOCAINE 10 ML SYRINGE SUBQ STA (10:48)
--- NOTE | 2020-08-27 10:49 | ED Physician Documentation ---
PD HPI UPPER EXT INJURY - Stated complaint Stated Complaint: RT FINGER LAC - History obtained from History obtained from: Patient (This is a e[place]elina right-handed woman who is up-to-date on tetanus who cut her dominant, right index finger with a knife while washing it at home just prior to arrival.) Review of Systems Constitutional: reports: Reviewed and negative Nose: reports: Reviewed and negative Throat: reports: Reviewed and negative PD PAST MEDICAL HISTORY - Past Medical History Endocrine/Autoimmune: Type 2 diabetes Psych: Depression - Past Surgical History Past Surgical History: Yes General: Appendectomy Ortho: Knee replacement - Present Medications Home Medications: Ambulatory Orders Medication Instructions Recorded Confirmed Insulin Glargine,Hum.rec.anlog 80 unit SQ 09/19/13 06/30/15 [Lantus] Metformin HCl [Glucophage] 1,000 mg PO BID 09/19/13 06/30/15 Venlafaxine HCl [Effexor Xr] 150 mg PO DAILY 12/26/17 traMADol [Ultram] 50 - 100 mg PO Q6H PRN #14 tablet 05/02/20 Ciprofloxacin [Cipro] 250 mg PO Q12H 5 Days #10 tablet 05/12/20 Levofloxacin 750 mg PO DAILY #10 tablet 05/18/20 Clotrimazole 1% Cream [Lotrimin 1% 1 gm TOP BID #4 tub 08/27/20 Cream] - Allergies Allergies/Adverse Reactions: Allergies Allergy/AdvReac Type Severity Reaction Status Date / Time fexofenadine HCl * Allergy Hives Verified 08/27/20 10:49 [From Esther] Penicillins Allergy Hives Verified 08/27/20 10:49 Sulfa (Sulfonamide Allergy Hives Verified 08/27/20 10:49 Antibiotics) - Social History Does the pt smoke?: No Smoking Status: Never smoker Does the pt drink ETOH?: No Does the pt have substance abuse?: No - Immunizations Immunizations are current?: Yes PD ED PE NORMAL - Vitals Vital signs reviewed: Yes - General General: Alert and oriented X 3, No acute distress - HEENT HEENT: PERRL, EOMI - Derm Derm: Other (She rolan my attention to a spot on the dorsum of the left fourth finger that has been there for a couple of weeks and is mildly itchy. It is most consistent with ringworm.) - Extremities Extremities: Other (There is a just greater than 1 cm laceration on the radial side of the right index finger just distal to the PIP without distal neurovascular compromise.) - Neuro Neuro: Alert and oriented X 3, Normal speech Results - Vitals Vitals: Vital Signs - 24 hr 08/27/20 10:49 Temperature 37.1 C Heart Rate 66 Respiratory 18 Rate Blood Pressure 167/94 H O2 Saturation 98 Oxygen O2 Source Room air Procedures - Laceration (location) R 2nd finger Length in cm: 1.2 Wound type: Linear, Into subcut fat Neurovascular status: Sensory intact, Motor intact, Vascular intact Anesthesia: Lidocaine 1%, With bicarb Wound preparation: Irrigated copiously NS Skin layer closure: Nylon, Interrupted, Size #-0 - enter number (4-0), Sutures - enter # (4) Other: Patient tolerated well, No complications, Neurovascular intact Departure - Departure Disposition: 01 Home, Self Care Clinical Impression: Ringworm Finger laceration Qualifiers: Encounter type: initial encounter Finger: index finger Damage to nail status: without damage Foreign body presence: without foreign body Laterality: right Qualified Code(s): S61.210A - Laceration without foreign body of right index finger without damage to nail, initial encounter Condition: Good Record reviewed to determine appropriate education?: Yes Instructions: ED Laceration Hand Prescriptions: Clotrimazole 1% Cream [Lotrimin 1% Cream] 1 gm TOP BID #4 tub Comments: Come back for any signs of infection which would include: Redness, swelling, drainage, increased pain, or fevers. You can wash it soap and water. Keep it covered and moist with bacitracin ointment which is available over the counter; avoid neosporin. Follow-up with your physician in 10-14 days for suture removal. For the spot on the other finger, looks most consistent with ringworm. Play the cream religiously if it still there in a few weeks follow-up with a career law clerk. Discharge Date/Time: 08/27/20 11:22
[2020-08-27 10:52] VITALS: BP 167/94
== END 2020-08-27 11:22 | disposition home or self-care (01) ==
LOC: ED 10:41
DX: S61.210A Laceration without foreign body of right index finger without damage to nail, initial encounter (principal); W26.0XXA Contact with knife, initial encounter; Y93.G1 Activity, food preparation and clean up; Y92.009 Unspecified place in unspecified non-institutional (private) residence as the place of occurrence of the external cause; B35.2 Tinea manuum; E11.9 Type 2 diabetes mellitus without complications; Z79.4 Long term (current) use of insulin
CPT/HCPCS: 12001; 99282; 99283

== ENCOUNTER 2020-12-04 18:53 | Emergency (ER) | payer MEDICARE, OTHER ==
[2020-12-04 19:00] VITALS: BP 137/60
--- NOTE | 2020-12-04 19:44 | ED Physician Documentation ---
History of Present Illness - Stated complaint Stated Complaint: RT FOOT PX/INJ - Chief complaint Chief Complaint: Trauma Ext - History obtained from History obtained from: Patient - History of Present Illness Timing: Today Pain level max: 7 Pain level now: 5 - Additonal information Additional information: Patient is a 70-year-old female who was working with a cast iron patterson today when she excellently dropped it on her foot and ankle. Now having pain with walking. Better with rest, worse with movement. She dropped it on the right foot and ankle. Review of Systems Constitutional: denies: Fever GI: denies: Vomiting Neurologic: denies: Head injury PD PAST MEDICAL HISTORY - Past Medical History Past Medical History: Yes Endocrine/Autoimmune: Type 2 diabetes Psych: Depression - Past Surgical History Past Surgical History: Yes General: Appendectomy Ortho: Knee replacement - Present Medications Home Medications: Ambulatory Orders Medication Instructions Recorded Confirmed Insulin Glargine,Hum.rec.anlog 80 unit SQ 09/19/13 06/30/15 [Lantus] Metformin HCl [Glucophage] 1,000 mg PO BID 09/19/13 06/30/15 Venlafaxine HCl [Effexor Xr] 150 mg PO DAILY 12/26/17 traMADol [Ultram] 50 - 100 mg PO Q6H PRN #14 tablet 05/02/20 Ciprofloxacin [Cipro] 250 mg PO Q12H 5 Days #10 tablet 05/12/20 levoFLOXacin [Levofloxacin] 750 mg PO DAILY #10 tablet 05/18/20 Clotrimazole 1% Cream [Lotrimin 1% 1 gm TOP BID #4 tub 08/27/20 Cream] - Allergies Allergies/Adverse Reactions: Allergies Allergy/AdvReac Type Severity Reaction Status Date / Time fexofenadine HCl * Allergy Hives Verified 12/04/20 19:00 [From Esther] Penicillins Allergy Hives Verified 12/04/20 19:00 Sulfa (Sulfonamide Allergy Hives Verified 12/04/20 19:00 Antibiotics) - Social History Does the pt smoke?: No Smoking Status: Never smoker Does the pt drink ETOH?: No Does the pt have substance abuse?: No - Immunizations Immunizations are current?: Yes PD ED PE NORMAL - Vitals Vital signs reviewed: Yes - General General: Alert and oriented X 3, No acute distress - Derm Derm: Warm and dry - Extremities Extremities: Other (Tender to palpation over the anterior aspect of the right ankle, tibiotalar joint. Also tender over the dorsum of the right foot. No swelling. No ecchymosis. Neurovascularly intact.) - Neuro Neuro: Alert and oriented X 3 Results - Vitals Vitals: Vital Signs - 24 hr 12/04/20 18:56 Temperature 36.5 C Heart Rate 81 Respiratory 16 Rate Blood Pressure 137/60 H O2 Saturation 100 Oxygen O2 Source Room air - Rads (name of study) Right foot x-ray Radiology: Prelim report reviewed, EMP read contemporaneously, See rad report (No acute abnormality) Right ankle x-ray Radiology: Prelim report reviewed, EMP read contemporaneously, See rad report (No acute abnormality) PD MEDICAL DECISION MAKING - ED course Complexity details: reviewed results, re-evaluated patient, considered differential, d/w patient, d/w family ED course: Patient with a foot and ankle contusion after dropping a cast iron patterson on her foot and ankle. No acute findings on x-ray. Declines pain medication here or for home. She states she has crutches and a walker at home. She will weight- bear as tolerated. Patient and family counseled regarding signs and symptoms for which I believe and urgent re-evaluation would be necessary. Patient with good understanding of and agreement to plan and is comfortable going home at this time This document was made in part using voice recognition software. While efforts are made to proofread this document, sound alike and grammatical errors may occur. Departure - Departure Disposition: 01 Home, Self Care Clinical Impression: Contusion of foot, right Qualifiers: Encounter type: initial encounter Qualified Code(s): S90.31XA - Contusion of right foot, initial encounter Condition: Good Instructions: ED Contusion Foot Follow-Up: Donald Boggs DO [Primary Care Provider] - Within 1 week Comments: Follow-up with your doctor in 1 week if you are still having pain. You can use Motrin or Tylenol as needed for pain. You can weight-bear as tolerated. Your x-ray of your ankle and foot are normal today. Return if you worsen Discharge Date/Time: 12/04/20 20:20
--- NOTE | 2020-12-04 19:58 | XRAY Report ---
PROCEDURE: Foot 3 View RT INDICATIONS: skillet vs foot TECHNIQUE: 3 views of the foot were acquired. COMPARISON: None FINDINGS: Bones: No acute fractures or dislocations. Prominent plantar calcaneal spur. Mild degenerative sue ges of the right dorsal midfoot. No suspicious bony lesions. Soft tissues: No tibiotalar joint effusion. Achilles tendon appears normal. IMPRESSION: Right foot without acute fracture or dislocation. Prominent plantar calcaneal enthesophyte. If there is persistent clinical concern for a radiographically occult fracture, recommend immobilizat ion and repeat imaging in 10 to 14 days. Reviewed by: Roman Yeung MD on 12/04/2020 7:57 PM PDT Approved by: Roman Yeung MD on 12/04/2020 7:57 PM PDT Station ID: [id number]
--- NOTE | 2020-12-04 20:00 | XRAY Report ---
PROCEDURE: Ankle 3 View RT INDICATIONS: ankle vs frying patterson TECHNIQUE: 3 views of the ankle were acquired. COMPARISON: None FINDINGS: Bones: No acute fractures or dislocations. Ankle mortise is normally aligned. No suspicious bony l esions. Prominent plantar calcaneal spur. Mild degenerative changes of the dorsal midfoot. Soft tissues: No tibiotalar joint effusion. Achilles tendon appears normal. Moderate soft tissue s welling surrounding the medial and lateral malleolus. IMPRESSION: Moderate soft tissue swelling of the right ankle without underlying fracture or dislocation. Prominent plantar calcaneal enthesophyte. Dorsal right midfoot degenerative change. If there is persistent clinical concern for a radiographically occult fracture , recommend immobiliza tion and repeat imaging in 10 to 14 days. Reviewed by: Roman Yeung MD on 12/04/2020 7:59 PM PDT Approved by: Roman Yeung MD on 12/04/2020 7:59 PM PDT Station ID: [id number]
== END 2020-12-04 20:20 | disposition home or self-care (01) ==
LOC: ED 18:53
DX: S90.31XA Contusion of right foot, initial encounter (principal); S90.01XA Contusion of right ankle, initial encounter; W20.8XXA Other cause of strike by thrown, projected or falling object, initial encounter; M77.31 Calcaneal spur, right foot; E11.9 Type 2 diabetes mellitus without complications; Z79.4 Long term (current) use of insulin
CPT/HCPCS: 99282; 99283

== ENCOUNTER 2021-05-24 15:58 | Outpatient (CLI) | payer MEDICARE, OTHER ==
--- NOTE | 2021-05-24 16:48 | Ultrasound Report ---
PROCEDURE: Ext Limited Non Vascular INDICATIONS: SUBCUTANEOUS MASS LEFT LOWER LEG TECHNIQUE: Real-time scanning was performed of the left lower leg, with image documentation. COMPARISON: None. FINDINGS: Focused ultrasound examination of left lower leg soft tissue patient's reported area of palpable lump s shows 1.9 x 0.5 x 1.6 cm isoechoic structure within subcutaneous soft tissue in left lateral calf r egion with small amount of internal vascularity. Tiny 3 x 1.5 x 4 mm calcification is noted in subcutaneous soft tissue of left calf region with throu gh acoustic shadowing. Numerous tiny calcifications also noted in subcutaneous soft tissue of left calf region with subtle a coustic shadowing. Varicose vein is seen in posterior left calf. IMPRESSION: 1. Finding is suggestion of a 1.9 x 0.5 x 1.6 cm lipoma within lateral left calf. Clinical and sonogr aphic follow-up is recommended. 2. Multiple calcifications scattered in left calf soft tissue with through acoustic shadowing suggest jorge of calcified granuloma versus dystrophic calcifications from prior soft tissue injury. 3. Varicose veins seen in left calf. Reviewed by: Isaac White MD on 05/24/2021 4:46 PM PST Approved by: Isaac White MD on 05/24/2021 4:46 PM PST Station ID: [id number]
== END 2021-05-24 15:59 | disposition home or self-care (01) ==
LOC: DI 15:58
PROVIDERS: ATTEND Family Medicine
DX: R22.42 Localized swelling, mass and lump, left lower limb (principal); I83.92 Asymptomatic varicose veins of left lower extremity

== ENCOUNTER 2021-11-12 11:29 | Outpatient (CLI) | payer MEDICARE, OTHER ==
--- NOTE | 2021-11-12 14:00 | XRAY Report ---
PROCEDURE: Chest 2 View X-Ray INDICATIONS: COUGH TECHNIQUE: 2 view(s) of the chest. COMPARISON: 05/12/2020 FINDINGS: Surgical changes and devices: None. Lungs and pleura: No pleural effusions or pneumothorax. Lungs are clear. Mediastinum: Mediastinal contours are normal. Heart size is normal. Bones and chest wall: No suspicious bony abnormalities. Soft tissues appear unremarkable. IMPRESSION: No acute process. Reviewed by: Tavares Buitrago MD on 11/12/2021 1:58 PM PDT Approved by: Tavares Buitrago MD on 11/12/2021 1:58 PM PDT Station ID: [id number]
== END 2021-11-12 11:30 | disposition home or self-care (01) ==
LOC: DI.N 11:29
PROVIDERS: ATTEND Physician Assistant
DX: R05.9 Cough, unspecified (principal)

== ENCOUNTER 2022-10-10 19:15 | Outpatient (CLI) | payer MEDICARE, OTHER ==
--- NOTE | 2022-10-11 17:24 | Ultrasound Report ---
PROCEDURE: Head or Neck Soft Tissue INDICATIONS: THYROID NODULE TECHNIQUE: Real-time scanning was performed of the thyroid gland, with image documentation. COMPARISON: Thyroid ultrasound 07/18/2018 FINDINGS: Right: Thyroid lobe measures 3.6 x 2.3 x 1.7 cm, and is homogeneous in echotexture. Left: Thyroid lobe measures 3.8 x 1.9 x 1.4 cm, and is homogenous in echotexture. Isthmus: 4 mm thick. Nodule number: One Location: Right inferior Size: 1.1 x 1.0 x 0.9 cm compared to 1.4 x 1.6 x 1.9 cm. Composition: Cyst. Echogenicity: Anechoic. Shape: wider than tall. Margins: Smooth (0 points). Echogenic foci: None (0 points). Total points: 0 ACR TI-RADS category: 1. Nodule number: Two Location: Right superior Size: 0.7 0.5 x 0.8 cm compared to 0.6 x 0.4 x 0.5 cm. Composition: Solid. Echogenicity: Hypoechoic. Shape: wider than tall. Margins: Smooth (0 points). Echogenic foci: None (0 points). Total points: 4 ACR TI-RADS category: 4. Nodule number: Three Location: Left mid Size: Less than 0.5 cm. Composition: Partially cystic. Echogenicity: Hypoechoic. Shape: wider than tall. Margins: Smooth (0 points). Echogenic foci: Punctate. Total points: 5 ACR TI-RADS category: 4. IMPRESSION: Lesions 1 and 2 are similar compared to prior exam. Lesion 2 requires no additional follow-up seconda ry to size. Lesion 1 requires no additional follow-up given TI RADS category. Lesion 3 recommends no additional follow-up given small size as below. ACR TI-RADS definitions and recommendations: TI-RADS 1 (benign): 0 points. FNA not needed. TI-RADS 2 (not suspicious): 2 points. FNA not needed. TI-RADS 3 (mildly suspicious): 3 points. "FNA if 2.5 cm or larger, follow up if 1.5 cm or larger (at 1, 3, and 5 years). TI-RADS 4 (moderately suspicious): 4-6 points. "FNA if 1.5 cm or larger, follow up if 1 cm or larger (at 1, 2, 3, and 5 years). TI-RADS 5 (highly suspicious): 7 points or more. "FNA if 1 cm or larger, follow up if 0.5 cm or larger (every year for 5 years). Reviewed by: Jimena Tapia MD on 10/11/2022 5:23 PM PDT Approved by: Jimena Tapia MD on 10/11/2022 5:23 PM PDT Station ID: [id number]
== END 2022-10-10 19:16 | disposition home or self-care (01) ==
LOC: DI 19:15
PROVIDERS: ATTEND Student in an Organized Health Care Education/Training Program
DX: E04.2 Nontoxic multinodular goiter (principal)

== ENCOUNTER 2022-10-21 09:07 | Outpatient (CLI) | payer MEDICARE, OTHER ==
--- NOTE | 2022-10-21 12:28 | DEXA Report ---
PROCEDURE: Dexa Spine and/or Hip INDICATIONS: SCREENING FOR OSTEOPOROSIS TECHNIQUE: Dual energy x-ray absorptiometry (DXA) was performed on a [employer] System. Regions measur ed are the AP Spine, femoral neck, and if needed forearm. COMPARISON: 06/16/2020 FINDINGS: Lumbar Spine: Bone Mineral Density 1.103 g/cm/cm,T score -0.6, normal, change from previous 5.4%, significant Left Femoral Neck: Bone Mineral Density 0.955 g/cm/cm, T score -0.6, normal Left Hip: Bone Mineral Density 0.977 g/cm/cm,T score -0.2, normal, change from previous 2.3% (T score greater or equal to -1.0: NORMAL) (T score from -1.1 to -2.4: OSTEOPENIA) (T score less than or equal to -2.5 to: OSTEOPOROSIS) Impression: 1. Significant interval increase in bone mineral density in the lumbar spine compared to prior. 2. Normal bone mineral density. No elevated fracture risk. Patients with diagnosis of osteoporosis or osteopenia should have regular bone mineral density assess ment. For those eligible for Medicare, routine testing is allowed once every 2 years. Testing frequ ency can be increased for patients who have rapidly progressing disease or for those who are receivin g medical therapy to restore bone mass. Reviewed by: Teresa Blank MD on 10/21/2022 12:27 PM PDT Approved by: Teresa Blank MD on 10/21/2022 12:27 PM PDT Station ID: [id number]
== END 2022-10-21 09:08 | disposition home or self-care (01) ==
LOC: DI 09:07
PROVIDERS: ATTEND Student in an Organized Health Care Education/Training Program
DX: Z13.820 Encounter for screening for osteoporosis (principal); Z78.0 Asymptomatic menopausal state

== ENCOUNTER 2022-10-21 09:08 | Outpatient (CLI) | payer MEDICARE, OTHER ==
--- NOTE | 2022-10-24 09:16 | Mammography Report ---
BILATERAL DIGITAL SCREENING MAMMOGRAM 3D/2D: 10/21/2022 CLINICAL: Routine screening. Comparison is made to exams dated: 06/16/2020 mammogram - [facility] and 08/14/2013 mammogram - [facility]. Both breasts are heterogeneously dense, which may obscure small masses (category c / 51-75% glandular tissue). There are benign calcifications in both breasts. No significant masses, calcifications, or other findings are seen in either breast. There has been no significant interval change. IMPRESSION: BENIGN There is no mammographic evidence of malignancy. A 1 year screening mammogram is recommended. Based on the Tyrer Cuzick model (a risk assessment model) the patients lifetime risk is 5.3% and her 10 year risk is 4.8%. According to the ACR, ACS, and NCCN guidelines, an annual breast MRI exam marcello g with mammogram is recommended if the patients lifetime risk is 20% or greater. This exam was interpreted at Station ID: [id number]. NOTE: For mammograms, a report in lay terms will be sent to the patient. Approximately 15% of breast malignancies will not be visualized mammographically. In the management of a palpable breast mass, a negative mammogram must not discourage biopsy of a clinically suspicious lesion. Electronically Signed By: Bola duff/koffi:10/21/2022 10:35:03 letter sent: No_Letter ACR BI-RADS Category 2: Benign Finding(s) 3342F PARENCHYMAL PATTERN: (D) - The breast(s) demonstrate(s) heterogeneously dense fibroglandular sindy ritter. BI-RADS CATEGORY: (2) - 2 Mammogram [id number] 1 year screening LATERALITY: (B)
== END 2022-10-21 09:09 | disposition home or self-care (01) ==
LOC: DI 09:08
PROVIDERS: ATTEND Student in an Organized Health Care Education/Training Program
DX: Z12.31 Encounter for screening mammogram for malignant neoplasm of breast (principal)

== ENCOUNTER 2024-03-11 19:26 | Outpatient (CLI) | payer MEDICARE, OTHER | END 2024-03-11 19:27 | disposition critical access hospital (66) | LOC: EMS 19:26 | DX: R51.9 Headache, unspecified (principal); S01.81XA Laceration without foreign body of other part of head, initial encounter; S01.412A Laceration without foreign body of left cheek and temporomandibular area, initial encounter; W01.190A Fall on same level from slipping, tripping and stumbling with subsequent striking against furniture, initial encounter; Y93.01 Activity, walking, marching and hiking; Y92.008 Other place in unspecified non-institutional (private) residence as the place of occurrence of the external cause; M25.561 Pain in right knee; R42 Dizziness and giddiness; R11.0 Nausea | CPT/HCPCS: A0425; A0429 ==

== ENCOUNTER 2024-03-11 19:29 | Emergency (ER) | payer MEDICARE, OTHER ==
[2024-03-11 19:48] VITALS: O2SAT 96
--- NOTE | 2024-03-11 19:54 | ED Physician Documentation ---
History of Present Illness - Stated complaint Stated Complaint: GLF, RT KNEE PAIN, FOREHEAD AND CHEEK LAC - Chief complaint Chief Complaint: Trauma Ext - History obtained from History obtained from: Patient, Family, EMS - History of Present Illness Timing: Today Pain level max: 5 Pain level now: 4 - Additonal information Additional information: Patient is a 73-year-old female who presents to the emergency department after a ground-level fall. She states she was walking down her hallway when she tripped and fell. Causing a laceration to the forehead, left cheek. Also complaining of right knee pain. 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 Worse with movement, better with rest. Not on blood thinners. No loss of consciousness. No vomiting. Mild lower neck pain. No numbness or tingling. Review of Systems Constitutional: denies: Fever, Chills Nose: denies: Rhinorrhea / runny nose, Congestion, Foreign Body Respiratory: denies: Cough GI: denies: Nausea, Vomiting, Diarrhea Skin: denies: Rash Musculoskeletal: denies: Neck pain, Back pain Neurologic: denies: Headache PD PAST MEDICAL HISTORY - Past Medical History Past Medical History: Yes Cardiovascular: High cholesterol Neuro: TIA, Tremors Endocrine/Autoimmune: Type 2 diabetes Psych: Depression - Past Surgical History Past Surgical History: Yes General: Appendectomy Ortho: Knee replacement - Present Medications Home Medications: Ambulatory Orders Medication Instructions Recorded Confirmed Insulin Glargine,Hum.rec.anlog 20 - 70 unit SQ BID 09/19/13 01/09/23 [Lantus] Metformin HCl [Glucophage] 500 mg PO BID 09/19/13 01/09/23 Aspirin [Aspirin EC] 81 mg PO DAILY 01/09/23 01/09/23 Rizatriptan Benzoate [Rizatriptan] 5 mg PO DAILY PRN 01/09/23 01/09/23 Sertraline [Zoloft] 50 mg PO DAILY 01/09/23 01/09/23 Simvastatin [Zocor] 40 mg PO DAILY 01/09/23 01/09/23 Triamcinolone 0.1% Oint 1 applic TOP BID 01/09/23 01/09/23 hydroCHLOROthiazide [Hydrodiuril] 25 mg PO DAILY 01/09/23 01/09/23 lisinopriL [Zestril] 5 mg PO DAILY 01/09/23 01/09/23 - Allergies Allergies/Adverse Reactions: Allergies Allergy/AdvReac Type Severity Reaction Status Date / Time adhesive tape Allergy Hives Verified 03/11/24 19:34 fexofenadine HCl * Allergy Hives Verified 03/11/24 19:34 [From Esther] Penicillins Allergy Hives Verified 03/11/24 19:34 Sulfa (Sulfonamide Allergy Hives Verified 03/11/24 19:34 Antibiotics) - Social History Does the pt smoke?: No Smoking Status: Never smoker Does the pt drink ETOH?: No Does the pt have substance abuse?: No - Immunizations Immunizations are current?: Yes PD ED PE NORMAL - Vitals Vital signs reviewed: Yes - General General: Alert and oriented X 3, No acute distress - HEENT HEENT: PERRL (No fluorescein uptake.), EOMI (Periorbital swelling and tenderness to the left orbit), Moist mucous membranes, Other (3 cm linear superficial lace ration to the forehead, 2 cm linear laceration to the left cheek. Mild swelling and bruising to the left cheek as well.) - Neck Neck: Supple, no meningeal sign, Other (C-collar in place) - Cardiac Cardiac: RRR, Strong equal pulses - Respiratory Respiratory: No respiratory distress, Clear bilaterally - Abdomen Abdomen: Soft, Non tender, Non distended - Back Back: No CVA TTP, No spinal TTP - Derm Derm: Warm and dry - Extremities Extremities: No deformity, Other (Mild tenderness to palpation over the right proximal tibia. No gross deformity. Healed TKR scar. Neurovascularly intact. No other swelling or pain of all major joints.) - Neuro Neuro: Alert and oriented X 3, operations boardman 2-12 intact, No motor deficit, No sensory deficit, Normal speech Eye Opening: Spontaneous Motor: Obeys Commands Verbal: Oriented GCS Score: 15 - Psych Psych: Normal mood, Normal affect Results - Vitals Vitals: Vital Signs - 24 hr 03/11/24 03/11/24 19:35 21:38 Temperature 36.5 C Heart Rate 88 91 Respiratory 18 20 Rate Blood Pressure 154/91 H 131/74 H O2 Saturation 96 96 Oxygen O2 Source Room air - Labs Labs: Laboratory Tests 03/11/24 20:34 POC Whole Bld Glucose 329 H - Rads (name of study) Head CT Relevant Findings:: Final report received, See rad report Maxillofacial CT Relevant Findings:: Final report received, See rad report Cervical spine CT Relevant Findings:: Final report received, See rad report Right knee x-ray Relevant Findings:: Final report received, See rad report Procedures - Laceration (location) forehead Length in cm: 3 Wound type: Linear, Superficial Neurovascular status: Sensory intact, Motor intact, Vascular intact Wound preparation: Irrigated copiously NS Skin layer closure: Dermabond Other: Patient tolerated well, No complications, Neurovascular intact, Tetanus UTD L cheek Length in cm: 2 Wound type: Linear, Superficial, Clean Neurovascular status: Sensory intact, Motor intact, Vascular intact Wound preparation: Irrigated copiously NS Skin layer closure: Dermabond Other: Patient tolerated well, No complications, Neurovascular intact, Dressing applied, Tetanus UTD PD Medical Decision Making - ED course Complexity details: reviewed results, re-evaluated patient, considered differential, d/w patient, d/w family ED course: 73-year-old female status post ground level fall. No significant acute findings on head CT, maxillofacial CT, cervical spine CT. Tetanus up-to-date. Lacerations repaired with Dermabond as they were very well-approximated and superficial. No indication for antibiotics. Wounds were cleansed and bandaged. Right knee x-ray does not show any acute abnormalities. Ambulating without difficulty in the emergency department. Declines pain medication for home. We will continue supportive care and have her follow-up with her doctor for further care. Patient counseled regarding signs and symptoms for which I believe and urgent re-evaluation would be necessary. Patient with good understanding of and agreement to plan and is comfortable going home at this time This document was made in part using voice recognition software. While efforts are made to proofread this document, sound alike and grammatical errors may occur. Departure - Departure Disposition: 01 Home, Self Care Clinical Impression: Ground-level fall Forehead laceration Qualifiers: Encounter type: initial encounter Qualified Code(s): S01.81XA - Laceration without foreign body of other part of head, initial encounter Knee contusion Qualifiers: Encounter type: initial encounter Laterality: right Qualified Code(s): S80.01XA - Contusion of right knee, initial encounter Cheek laceration Qualifiers: Encounter type: initial encounter Laterality: left Qualified Code(s): S01.412A - Laceration without foreign body of left cheek and temporomandibular area, initial encounter Condition: Good Instructions: ED Contusion Lower Ext, ED Laceration Facial Skin Glue Follow-Up: Donald Boggs DO [Primary Care Provider] - Within 1 week Comments: Your head CT, cervical spine CT, maxillofacial CT and knee x-ray do not show any acute abnormalities today. The lacerations were repaired with Dermabond. You have indicated that your tetanus shot is up-to-date. You can use Motrin or Tylenol as needed for pain. Return if you worsen. Forms: PCP List Discharge Date/Time: 03/11/24 22:07
[2024-03-11] MEDS: oxyCODONE 5 MG TABLET PO STA (20:33)
--- NOTE | 2024-03-11 20:46 | CT Report ---
PROCEDURE: Cervical Spine WO INDICATIONS: fall, pain TECHNIQUE: Noncontrast 3 mm thick sections acquired from the skull base to the T4 level. Sagittal and coronal r eformats were then constructed. For radiation dose reduction, the following was used: automated exp osure control, adjustment of mA and/or kV according to patient size. COMPARISON: 07/09/2018 FINDINGS: Image quality: Excellent. Bones: No fractures or dislocations. Visualized superior ribs are intact. Soft tissues: Prevertebral soft tissues are normal in thickness. No paravertebral hematomas. No ap ical pneumothoraces. IMPRESSION: No acute, displaced fracture or traumatic subluxation. Reviewed by: Luis Pompa MD on 03/11/2024 8:44 PM PDT Approved by: Luis Pompa MD on 03/11/2024 8:44 PM PDT Station ID: [id number]
--- NOTE | 2024-03-11 20:52 | CT Report ---
PROCEDURE: Head WO INDICATIONS: fall, pain TECHNIQUE: Noncontrast 4.5 mm thick angled axial sections acquired from the foramen magnum to the vertex. For r adiation dose reduction, the following was used: automated exposure control, adjustment of mA and/or kV according to patient size. COMPARISON: 02/01/2019 FINDINGS: Image quality: Excellent. CSF spaces: Basal cisterns are patent. No extra-axial fluid collections. Ventricles are normal in size and shape. Brain: No midline shift. No intracranial masses or hemorrhage. Alexandra-white matter interface is norm al. Skull and face: Please see maxillary CT for further discussion regarding periorbital edema. No calvar ial fracture. Sinuses: Visualized sinuses and mastoids are clear. IMPRESSION: No acute intracranial pathology. Please see facial CT regarding periorbital edema. Reviewed by: Luis Pompa MD on 03/11/2024 8:51 PM PDT Approved by: Luis Pompa MD on 03/11/2024 8:51 PM PDT Station ID: [id number]
--- NOTE | 2024-03-11 20:53 | XRAY Report ---
PROCEDURE: Knee 1-2V RT INDICATIONS: knee pain s/p fall, h/o TKR TECHNIQUE: 2 views of the knee(s) were acquired. COMPARISON: None. FINDINGS: Bones: No fractures or dislocations. No suspicious bony lesions. Well-aligned arthroplasty withou t hardware complication. Soft tissues: No knee joint effusion. No suspicious soft tissue calcifications or masses. IMPRESSION: No acute bony abnormality. Well-aligned arthroplasty without hardware complication. Reviewed by: Luis Pompa MD on 03/11/2024 8:52 PM PDT Approved by: Luis Pompa MD on 03/11/2024 8:52 PM PDT Station ID: [id number]
--- NOTE | 2024-03-11 20:56 | CT Report ---
PROCEDURE: Maxillofacial WO INDICATIONS: fall, pain TECHNIQUE: Noncontrast 1.5 mm thick axial images acquired from the mandible through the frontal sinuses, with co leelee and sagittal reformatting. For radiation dose reduction, the following was used: automated ex posure control, adjustment of mA and/or kV according to patient size. COMPARISON: None. FINDINGS: Image quality: Excellent. Bones and teeth: Orbital berger are intact. Sinus berger show no fracture or deformity. Nasal bones and septum are intact. Visualized portions of the mandible demonstrate no fractures or subluxation. Zygomatic arches are intact. Pterygoid plates are intact. Visualized portions of the skull base an d auditory canals are intact. Sinuses: Paranasal sinuses are aerated, without fluid levels, mucosal thickening, or mucoceles. Mas toid air cells are aerated. Soft tissues: There is a laceration with a subcutaneous hematoma and subcutaneous gas inferior to the left orbit. Vascular: Visualized vascular structures appear normal in the absence of contrast. Bony vascular fo ramina and canals are intact. IMPRESSION: Laceration, subcutaneous hematoma and subcutaneous gas inferior to the left orbit. No un derlying fracture. Reviewed by: Luis Pompa MD on 03/11/2024 8:55 PM PDT Approved by: Luis Pompa MD on 03/11/2024 8:55 PM PDT Station ID: [id number]
[2024-03-11 21:56] VITALS: BP 131/74
== END 2024-03-11 22:07 | disposition home or self-care (01) ==
LOC: EDUNIT# → ED 19:29
DX: S01.81XA Laceration without foreign body of other part of head, initial encounter (principal); S01.412A Laceration without foreign body of left cheek and temporomandibular area, initial encounter; S80.01XA Contusion of right knee, initial encounter; W01.198A Fall on same level from slipping, tripping and stumbling with subsequent striking against other object, initial encounter; Z91.81 History of falling; Y93.01 Activity, walking, marching and hiking; Y92.008 Other place in unspecified non-institutional (private) residence as the place of occurrence of the external cause
CPT/HCPCS: 12013; 70450; 70486; 72125; 73560; 99284; A9270